=== PATIENT | female | born 1960 | race Caucasian/White ===

== ENCOUNTER 2016-08-20 00:55 | Emergency (ER) | payer OTHER ==
--- NOTE | ~2016-08-20 | NM69 ---
[facility] A Service [facility] RADIOLOGY TEXT RESULTS PATIENT: NEETU TURK LOCATION: [facility] : 62 UNIT #: [id number] AGE: [address]: Pankaj Camara MD SEX: F ORDER DR: [id number] [facility] [address] [place], [place] [address] [id number] E MR#: [id number] Acc #: [id number] NAME: NEETU TURK. : 1960 SEX: F STUDY DATE/TIME: 08/20/2016 9:30 UNIT: KAR[facility] ROOM: STUDY DESCRIPTION: OR Pulm Vent and Perf Attending Physician: Pankaj Camara M.D. Ordering Physician: Marline Fuentes M.D. Primary Care Physician: Aleida Hawley M.D. MEDICAL IMAGING REPORT This report is preliminary unless electronic signature is present EXAM Ventilation/perfusion lung scan, 20 August 2016. COMPARISON Portable chest, 20 August 2016. CLINICAL HISTORY Four week history of pleuritic chest pain. PROCEDURE Study performed with 35.2 mCi technetium 99m DTPA aerosol by inhalation and 5.85 mCi technetium 99m MAA IV. COMPARISON Portable chest same date. FINDINGS Ventilation images show slight heterogeneity. Perfusion images also shows slight heterogeneity. There is a matching subsegmental defect in the right middle lobe. IMPRESSION Low likelihood ratio for pulmonary embolism. Dictated by... Edson Andrea M.D. THIS IS AN ELECTRONICALLY VERIFIED REPORT Edson Andrea M.D. at 08/22/2016 10:55 AM TEV/jt [facility] A Service [facility] RADIOLOGY TEXT RESULTS PATIENT: NEETU TURK LOCATION: [facility] : 62 UNIT #: [id number] AGE: [address]: Pankaj Camara MD SEX: F ORDER DR: TD: 08/20/2016 21:22 JOB #: [id number] MEDICAL IMAGING REPORT Page 1 of 1 COPY
--- NOTE | ~2016-08-20 | CR72 ---
[facility] A [facility] RADIOLOGY TEXT RESULTS PATIENT: NEETU TURK LOCATION: [facility] : 62 UNIT #: [id number] AGE: [address]: Pankaj Camara MD SEX: F ORDER DR: [id number] [facility] [address] [place], [place] [address] [id number] E MR#: [id number] Acc #: [id number] NAME: NEETU TURK. : 1960 SEX: F STUDY DATE/TIME: 08/20/2016 4:12 UNIT: [facility] ROOM: STUDY DESCRIPTION: CR Chest Single View Portable Attending Physician: Pankaj Camara M.D. Ordering Physician: Marline Fuentes M.D. Primary Care Physician: Aleida Hawley M.D. MEDICAL IMAGING REPORT This report is preliminary unless electronic signature is present EXAM Single view chest. INDICATIONS Right-sided chest pain for 2 days. Right shoulder pain. FINDINGS Single portable AP view of the chest compared to 09/29/2015. The heart is enlarged. There is a dual-lead AICD. Lungs are clear. No pleural effusion. IMPRESSION 1. Stable cardiomegaly. No acute findings. Dictated by... Nick Blanchard M.D. THIS IS AN ELECTRONICALLY VERIFIED REPORT Nick Blanchard M.D. at 08/21/2016 1:02 AM HERMINIA/lupillo TD: 08/20/2016 17:41 JOB #: [id number] MEDICAL IMAGING REPORT Page 1 of 1 COPY
--- NOTE | ~2016-08-20 | EKG ---
PATIENT: NEETU TURK UNIT #: [id number] Ventricular Rate: 78 BPM Atrial Rate: 78 BPM P-R Interval: 142 ms QRS Duration: 82 ms Q-T Interval: 404 ms QTC Calculation(Bezet): 460 ms P [place]: 65 degrees Calculated R [place]: 22 degrees Calculated T [place]: 71 degrees Diagnosis Line: Normal sinus rhythm Diagnosis Line: Nonspecific T wave abnormality Diagnosis Line: Prolonged QT Diagnosis Line: Abnormal ECG Diagnosis Line: No previous ECGs available Diagnosis Line: Confirmed by MARINA SANTOS MD ([id number]) on Diagnosis Line: 08/22/2016 11:05:24 AM INTERPRETING MD: DANIELLE PEGUERO
[~2016-08-20 00:55] MED LIST: ALBUTEROL MININEB NEB; ALDACTONE25 MG PO; ASPIRIN81 M2 PO; BACTRIM DS TABL1 TAB PO; BENZONATATE200 M1 PO; CARVEDILOL12.5 MG PO; CIPRO PO; FUROSEMIDE40 MG PO; GUAIFENESIN600 MG PO; LEVAQUIN750 MG PO; LISINOPRIL10 MG PO; LISINOPRIL2.5 MG PO; LISINOPRIL5 MG PO; METFORMIN HCL500 M1 PO; METFORMIN PO; MYCELEX15 GM TOP; NAPROSYN500 MG PO; NITROGLYGERIN0.4 MG SL; OXYCODON HCL-AP1 TA2 PO; OXYCONTIN20 MG PO; PANTOPRAZOLE SO40 MG PO; PERCOCET 5/321 UDTAB PO; PERCOCET10 PO; PHENERGAN25 M1 PO; PRAVACHOL20 MG PO; PRAVASTATIN SOD20 MG PO; PROTONIX PO; TOPAMAX PO; TOPROL XL PO; TYLOX 5/500 CAP1 CAP PO; ZANAFLEX4 M1 PO
[2016-08-20 04:41] LABS: BASOPHIL# 0.1 X10e3 (0-0.3); BASOPHIL% 0.6 % (0-2.5); EOSINOPHIL# 0.5 X10e3 (0-0.7); EOSINOPHIL% 3.7 % (0.0-7.0); HEMATOCRIT 31.8 % (35.0-45.0); HEMOGLOBIN 10.6 gm/dL (12.0-16.0); LYMPHOCYTE% 32.8 % (17.0-45.0); MEAN CELL VOLUME 90.4 FL (83-96); MEAN CORPUSCULAR HGB CONC 33.2 g/dL (30-36); MEAN PLATELET VOLUME 10.1 FL (6.5-11.5); MONOCYTE# 0.8 X10e3 (0-1.0); MONOCYTE% 6.8 % (3.0-12.0); NEUTROPHIL# 6.9 X10e3 (1.5-7.1); NEUTROPHIL% 56.1 % (40-75); PLATELET COUNT 193 X10e3 (140-420); RED BLOOD COUNT 3.51 X10e (3.90-5.30); RED CELL DISTRIBUTION WIDTH 12.5 % (11.0-15.5); WHITE BLOOD COUNT 12.3 X10e3 (4.0-10.5)
[2016-08-20 04:45] LABS: DIFF IND NO
[2016-08-20 04:57] LABS: PARTIAL THROMBOPLASTIN TIME 27.2 SECONDS (23.5-31.3); PROTHROMBIN TIME (PATIENT) 10.6 SECONDS (10.0-11.7)
[2016-08-20 05:07] LABS: ALBUMIN SERUM 4.1 g/dL (3.5-5.0); ALKALINE PHOSPHATASE 60 U/L (32-92); ALT (SGPT) 15 U/L (10-40); AST (SGOT) 13 U/L (10-42); BILIRUBIN,TOTAL 0.3 mg/dL (0.2-2.0); BLOOD UREA NITROGEN 37 mg/dL (9-23); BUN/CREATININE RATIO 20.55; CALCIUM SERUM 9.4 mg/dL (8.4-10.2); CARBON DIOXIDE 26 mmol/L (22-31); CHLORIDE 107 mmol/L (100-111); CREATININE SERUM 1.8 mg/dL (0.6-1.4); GLOM FILT RATE Estimated 31.1 mL/min (>60); GLUCOSE FASTING 147 mg/dL (70-110); POTASSIUM 4.7 mmol/L (3.5-5.1); PROTEIN TOTAL SERUM 7.5 g/dL (6.0-8.3); SODIUM 138 mmol/L (135-145)
[2016-08-20 05:21] LABS: BILIRUBIN, DIRECT <0.1 mg/dL (0.0-0.2); BILIRUBIN,INDIRECT 0.2 mg/dL (0.0-0.9)
[2016-08-20 07:02] LABS: POC - CKMB <1.0 ng/mL (0.0-7.9); POC - TROPONIN <0.05 ng/mL (<=0.05)
== END 2016-08-20 10:59 | disposition home or self-care (01) ==
LOC: CED 00:55
PROVIDERS: Emergency Medicine; Student in an Organized Health Care Education/Training Program
DX: R09.1 Pleurisy (principal); M25.511 Pain in right shoulder; E11.9 Type 2 diabetes mellitus without complications; I10 Essential (primary) hypertension; Z90.49 Acquired absence of other specified parts of digestive tract; Z90.710 Acquired absence of both cervix and uterus; F17.200 Nicotine dependence, unspecified, uncomplicated; Z88.0 Allergy status to penicillin
CPT/HCPCS: 36415; 71010; 78582; 80048; 80076; 82553; 83880; 84484; 85025; 85379; 85610; 85730; 93005; 96374; 96375; 99285; A9540; A9567; J2270; J2405